=== PATIENT | female | born 1990 | race Caucasian/White ===

== ENCOUNTER 2018-07-11 11:47 | Outpatient (REF) | payer BC, SELFPAY ==
--- NOTE | 2018-07-11 10:00 | PAPFT_PTH ---
PATIENT: Venus Maldonado LOC: [facility] U#:[id number] AGE/SX: 27/F ROOM: RE07/11/[address]: Michelle Betancourt : 1990 BED: DIS: 07/11/2018 SPEC #: [id number] RECD: 07/11/18 13:09 STATUS: MADHAVI REPernell #: [id number] ANTON: 07/11/18 10:[address]: Michelle Betancourt DEPT: [facility], [facility] Cytology RECD BY: Zaida Rosenthal Tissues: 1 - CX/ENDOCX FOR PAP SMEARS Procedures: PAP THIN PREP/[facility] Screening Comments: [id number] (CHLAMYDIA/GC)
[2018-07-14 13:37] LABS: Chlamydia Result Negative; GC Result Negative; Specimen Description SEE COMMENTS
== END 2018-07-11 12:07 ==
LOC: NCHCN 11:47
PROVIDERS: PCP Nurse Practitioner Family; Visit Provider Nurse Practitioner Family
DX: Z12.4 Encounter for screening for malignant neoplasm of cervix (principal); Z11.3 Encounter for screening for infections with a predominantly sexual mode of transmission; Z01.419 Encounter for gynecological examination (general) (routine) without abnormal findings; Z00.00 Encounter for general adult medical examination without abnormal findings
CPT/HCPCS: 87491; 87591; 88142

== ENCOUNTER 2021-09-15 14:44 | Outpatient (REF) | payer BC, SELFPAY ==
--- NOTE | 2021-09-15 10:30 | PAPFT_PTH ---
PATIENT: Venus Maldonado LOC: [facility] U#:[id number] AGE/SX: 30/F ROOM: RE09/15/[address]: Anna Jones : 1990 BED: DIS: 09/15/2021 SPEC #: [id number] RECD: 09/15/21 17:17 STATUS: MADHAVI REPernell #: [id number] ANTON: 09/15/21 10:[address]: Anna Jones DEPT: [facility] Cytology RECD BY: Zaida Rosenthal ENTERED: 09/15/21 17:17 SP TYPE: PAPFT OTHR DR: Michelle Betancourt Tissues: 1 - CX/ENDOCX FOR PAP SMEARS Procedures: PAP THIN PREP/[facility] Screening Comments: [id number] (CHLAMYDIA/GC)
[2021-09-18 15:32] LABS: Chlamydia Result Negative (Negative); GC Result Negative (Negative)
== END 2021-09-15 14:45 | disposition home or self-care (01) ==
LOC: NCHCN 14:44
PROVIDERS: PCP Nurse Practitioner Family; Visit Provider Family Medicine
DX: Z12.4 Encounter for screening for malignant neoplasm of cervix (principal); Z11.3 Encounter for screening for infections with a predominantly sexual mode of transmission
CPT/HCPCS: 87491; 87591; 88142